=== PATIENT | female | born 1985 | race Caucasian/White ===

== ENCOUNTER 2021-04-12 01:01 | Observation (INO) | payer OTHER, SELFPAY ==
[2021-04-12] VITALS (32 sets, daily range): BP systolic 122–151; BP diastolic 67–97; PULSE 93–111; RESP 20; TEMP 36.5–37.2; O2SAT 97–100; BMI 35.0
[2021-04-12] MEDS: LACTATED RINGERS 1,000 ML 999 ML IV CONT (01:51)
[2021-04-12 01:53] LABS: Add Urine Microscopic? YES; Appearance Urine Cloudy (Clear); Bacteria Urine Trace /hpf; Bilirubin Urine Negative (Negative); Blood Urine 3+ (Negative); Color Urine Amber (Yellow); Glucose Urine UA Negative (Negative); Ketones Urine Negative (Negative); Leukocyte Esterase Ur 3+ LEU/UL (Negative); Mucus Urine Rare /lpf; Nitrate Urine Negative (Negative); Protein Urine 2+ mg/dL (Negative); Specific Grav Ur 1.015 (1.001-1.035); Squamous Epithelial Cell Urine Occasional /hpf (Few); Urobilinogen Urine Negative mg/dL (<2.0); WBC Urine 21-30 /hpf
--- NOTE | 2021-04-12 01:55 | OBADM ---
This patient, Dipti Giron, admitted to the OB room [facility] for observation. Patient/family oriented to hospital policies and general routines including ID bracelet, bed and alarms, visiting hours, pain management, procedures, bathroom and other care routines, personal items, smoking policy, room service/diet, and visiting hours. Patient/Family are encouraged to report perceived risks to care and to ask questions if they do not understand what they are told or what they should do.
[2021-04-12] MEDS: NITROFURANTOIN MONOHYD MACROCR 100 MG CAP PO (02:34)
[2021-04-12] MEDS: NIFEdipine 10 MG CAPSULE PO (02:34)
[2021-04-12] MEDS: BETAMETHASONE SOD PHOS/ACETATE 30 MG/5 ML VIAL 12 MG IM (04:11)
[2021-04-12] MEDS: AMPICILLIN 2 GM/NS 100 ML 2 GM/100 ML BAG IVPB (04:18)
[2021-04-12] MEDS: TERBUTALINE SULFATE 1 MG/ML VIAL 0.25 MG SUB-Q (04:42)
--- NOTE | 2021-04-12 04:44 | PM.IMHP ---
H&P: HPI History of Present Illness Date/Time: 04/12/21 04:44 35 y/o at 34+0 by stated EDC 05/24 came in for c/o pelvic pain, dysuria, and hematuria. After she arrived, she started having contractions Q3-4 minutes. Procardia helped, then ctx returned. No leaking fluid. Normal movement. No roger vaginal bleeding. She sees [facility] and is on suboxone 8 mg tid with h/o heroin use. She has had frequent UTIs but denies other problems this Chief Complaint: pelvic pain, hematuria Review of Systems Review of Systems: All systems reviewed & are unremarkable except as noted in HPI and below Meds Home Medications and Allergies Home Medications Medication Instructions Recorded Confirmed Type Adderall 20 mg PO BID 04/12/21 04/12/21 History Effexor 225 mg PO DAILY 04/12/21 04/12/21 History Flexeril 10 mg PO PRN 04/12/21 04/12/21 History PNV,calcium 95-iffk-coblb acid 1 tablet PO DAILY 04/12/21 04/12/21 History [ Vitamin Plus Low Iron] Protonix 20 mg PO DAILY 04/12/21 04/12/21 History Suboxone 8 mg PO TID 04/12/21 04/12/21 History albuterol sulfate 90 mcg INHALATION DAILY 04/12/21 04/12/21 History aspirin 81 mg PO BID 04/12/21 04/12/21 History enoxaparin 40 mg SUBCUT DAILY 04/12/21 04/12/21 History guaifenesin [Mucus Relief ER] 600 mg PO BID 04/12/21 04/12/21 History levothyroxine 175 mcg PO DAILY 04/12/21 04/12/21 History trazodone 15 mg PO PRN 04/12/21 04/12/21 History Allergies Allergy/AdvReac Type Severity Reaction Status Date / Time latex Allergy Unknown Swelling Verified 05/04/19 12:29 Vital Signs Vital Signs - 24 hr 04/12/21 01:20 04/12/21 01:30 04/12/21 02:00 Temperature Pulse Rate 98 102 H 94 Respiratory Rate Blood Pressure 141/79 H 151/97 H 146/83 H 04/12/21 02:06 04/12/21 02:30 04/12/21 03:00 Temperature 36.5 C Pulse Rate 102 H 109 H Respiratory Rate 20 Blood Pressure 129/85 122/80 04/12/21 03:30 04/12/21 04:00 04/12/21 04:30 Temperature Pulse Rate 100 103 H 93 Respiratory Rate Blood Pressure 123/81 145/89 H 142/83 H Exam Const: General: alert, awake and uncomfortable Resp: Auscultation: clear to auscultation bilaterally Cardio: Rate: regular rate Rhythm: regular rhythm GI: GI Palp: Yes Soft to palpation, No Tenderness to palpation present (GI) and Yes Other GI palpation findings present (gravid) : Manual OB Exam: dilated 3 cm, effaced 50% and station -2 Extrem: General: no pedal edema and no calf tenderness Psych: Mental Status: mental status grossly normal H&P: Results Labs Labs: Urine 04/12/21 Range/Units 01:28 Urine Color Lisa (Yellow) Urine Appearance Cloudy H (Clear) Urine pH 7.0 (5.0-9.0) Ur Specific [place] 1.015 (1.001-1.035) Urine Protein 2+ H (Negative) mg/dL Urine Glucose (UA) Negative (Negative) mg/dL Assessment and Plan Assessment and plan (1) labor in third trimester: Code(s): O60.03 - labor without delivery, third trimester Status: Acute Assessment and Plan: She is s/p one dose procardia and one dose terbutaline. Start magnesium sulfate (ordered but not received yet from pharmacy). She was given one dose celestone. Ampicillin started for GBS prophylaxis. Transfer accepted by [facility] but awaiting transport. (2) Hypertension affecting in third trimester: Code(s): O16.3 - Unspecified maternal hypertension, third trimester Status: Acute Assessment and Plan: BP mildly elevated, not on any medication. No signs/sx preeclampsia. She has been taking 162 mg aspiring throughout (3) Breech presentation: Code(s): O32.1XX0 - Maternal care for breech presentation, not applicable or unspecified Status: Acute Assessment and Plan: Will need C section for delivery (4) Opioid dependence on agonist therapy: Code(s): F11.20 - Opioid dependence, uncomplicat
[2021-04-12] MEDS: MAGNESIUM SULF 4 GM/WATER100ML 4 GM/100 ML BAG IVPB (04:52)
[2021-04-12] MEDS: MAGNESIUM SULF 2 GM/WATER 50ML 2 GM/50 ML BAG IVPB (05:32)
--- NOTE | 2021-04-12 05:55 | PM.OBPNLAB ---
Pain Control Date/time seen: 04/12/21 05:55 Comments: in visible discomfort with contractions Pelvic Exam Dilation (cm): 5 Effacement (%): 90 station: -1 Amniotic membrane status: Intact Comments: Feet palpable even with cervix on exam Contractions Monitor mode: External Contraction pattern: Regular Contraction phase: Resting Contraction intensity: Strong/Firm Status status: Category ll Assessment and Plan Assessment: other ( labor unsuccessful at stopping) Plan: (due to breech presentation in active labor) Comments: [facility] had accepted her transfer about an hour and a half ago. Once transport arrived, the transport nurse insisted on the magnesium bolus being finished prior to them leaving. The bolus took longer than expected to be received from pharmacy and infused, so by the time that was done, she was checked again and had progressed from 3-4/50% to 5/90%. Transport nurse then called [facility] again, who now refused the transfer. Patient was advised to proceed with urgent C section here at [facility]. The patient expressed adamant desire to be transferred to [facility] for delivery since she receives her care there and does not want to be from her baby if he needs transferred, which is probable. Both myself and the transport nurse advised Dipti and her boyfriend of the risks including but not limited to delivery in the car, head entrapment due to breech presentation, premature baby needing extra care if delivers en route, traffic accident, among others. She expressed understanding, but she then removed her own IV and pulled monitors off. She signed form acknowledging she is leaving AGAINST MEDICAL ADVICE. She and her boyfriend left urgently saying he is driving her straight to [facility].
== END 2021-04-12 05:55 | disposition left against medical advice (07) ==
PROVIDERS: Admitting Provider Obstetrics & Gynecology; Visit Provider Obstetrics & Gynecology
DX: O60.03 Preterm labor without delivery, third trimester (principal); O32.1XX0 Maternal care for breech presentation, not applicable or unspecified; O99.323 Drug use complicating pregnancy, third trimester; F11.20 Opioid dependence, uncomplicated; O99.283 Endocrine, nutritional and metabolic diseases complicating pregnancy, third trimester; E03.9 Hypothyroidism, unspecified; Z79.51 Long term (current) use of inhaled steroids; Z3A.34 34 weeks gestation of pregnancy; Z86.711 Personal history of pulmonary embolism; Z79.01 Long term (current) use of anticoagulants; Z53.29 Procedure and treatment not carried out because of patient's decision for other reasons
CPT/HCPCS: 81001; 87086; 96372; 96374; 96375; 96376; A9270; G0378; G0379; J0290; J0702; J3105; J3475; J7120